=== PATIENT | male | born 1990 | race Caucasian/White ===

== ENCOUNTER 2017-08-22 20:39 | Inpatient (IN) | payer OTHER ==
[~2017-08-22] VITALS: Ht 195.6 cm; Wt 70.1 kg
[2017-08-22 20:46] VITALS: BP 157/92
[2017-08-22] MEDS ORDERED: IBUPROFEN 800800 M1 PO (20:49)
[2017-08-22 21:35] LABS: HEMATOCRIT 41.9 % (42.0-52.0); HEMOGLOBIN 14.6 gm/dL (14.0-18.0); MCH 30.6 pg (26.0-34.0); MCHC 34.8 g/dL (28.0-37.0); MCV 88.1 fL (80.0-100.0); MPV 8.2 fl. (7.2-11.1); NUCLEATED RBCS 0 /100WBC; PLATELET COUNT* 128 thou/uL (150-400); RBC 4.76 mil/uL (4.50-6.00); RDW-CV 13.1 % (10.5-14.5); WBC 13.2 thou/uL (4.0-11.0)
[2017-08-22 21:41] LABS: CALCIUM 8.6 mg/dL (8.5-10.1); CREATININE 0.9 mg/dL (0.6-1.3); POTASSIUM 3.5 mmol/L (3.5-5.1)
[2017-08-22 21:46] LABS: ALBUMIN 4.1 g/dL (3.4-5.0); TOTAL BILIRUBIN 1.2 mg/dL (<0.1-1.0); TOTAL PROTEIN 7.6 g/dL (6.4-8.2)
[2017-08-22 22:01] LABS: ABSOLUTE LYMPHOCYTES 1.1 thou/uL (0.8-5.3); ABSOLUTE MONOCYTES 0.4 thou/uL (0.0-1.2); ABSOLUTE NEUTROPHILS 11.7 thou/uL (1.6-8.1)
[2017-08-22 22:04] LABS: PLATELET ESTIMATE ADEQUATE
[2017-08-22 22:18] VITALS: BP 127/62
[2017-08-22 23:00] VITALS: BP 145/78
[2017-08-23 04:00] VITALS: BP 104/44
[2017-08-23 04:02] LABS: HEMATOCRIT 39.4 % (42.0-52.0); MCHC 35.5 g/dL (28.0-37.0); MCV 87.4 fL (80.0-100.0); MPV 8.6 fl. (7.2-11.1); RBC 4.51 mil/uL (4.50-6.00); RDW-CV 12.7 % (10.5-14.5); WBC 12.7 thou/uL (4.0-11.0)
[2017-08-23 04:20] LABS: CREATININE 0.9 mg/dL (0.6-1.3); POTASSIUM 3.9 mmol/L (3.5-5.1)
[2017-08-23 07:40] VITALS: BP 121/67
[2017-08-23 08:19] LABS: AMP/METHAMP Negative (Negative); BARBITURATES Negative (Negative); BENZODIAZEPINES Negative (Negative); COCAINE Negative (Negative); METHADONE Negative (Negative); OPIATES POSITIVE (Negative); PCP Negative (Negative); THC Negative (Negative)
[2017-08-23 16:14] VITALS: BP 116/56
[2017-08-23 20:00] VITALS: BP 126/59
[2017-08-23 23:32] VITALS: BP 128/71
[2017-08-24 08:00] VITALS: BP 116/68
--- NOTE | 2017-08-24 09:28 | CON ---
[address] [address] CONSULTATION Name: TEAGAN GUZMAN Room: [address] [place] .R.#: [id number] Admission: 08/22/17 Attend Phys: Mike Alonzo MD Discharge: Date of : 89 Report #: [id number] THIS REPORT FOR: //name// CC: Mike Alonzo [facility] physician/PCP DATE OF SERVICE: 08/23/2017 INFECTIOUS DISEASE CONSULTATION ATTENDING PHYSICIAN: Mike Alonzo MD REASON FOR EVALUATION: Skin and soft tissue right hand dorsal aspect, component of cellulitis and probable subcutaneous abscess. HISTORY OF PRESENT ILLNESS: Chart reviewed, patient examined. This is a 27-year-old without significant medical history who sustained an abrasion type injury to his hand dorsal aspect involving the middle digits as well. He had a progressive inflammatory eruption that was erythrodermic in character then moved proximally now involving a good portion of his forearm, has significant pain and decreased range of motion. He underwent evaluation including a white count, which was borderline elevated at 13.2. Blood cultures are sterile thus far. MRI shows diffuse dorsal subcutaneous fat edema and swelling within the distal forearm, hand, proximal digits consistent with manifestations cellulitis, tubular rim enhancing fluid collections in the dorsal subcutaneous fat involving the distal third and fourth metacarpals and perhaps involved the third extensor tendon and distal third metacarpal, has been empirically started on clindamycin. ALLERGIES: None known. MEDICINES: Include enoxaparin, clindamycin and fentanyl. PAST MEDICAL HISTORY: Otherwise, unremarkable. SOCIAL HISTORY: Nonsmoker, no ethanol. FAMILY HISTORY: Noncontributory. REVIEW OF SYSTEMS: Denies any pulmonary or gastrointestinal related complaints. PHYSICAL EXAMINATION: GENERAL: He is pleasant, alert and cooperative. He is in moderate distress secondary to pain. He is elevating, appears to be somewhat thin, although adequately nourished. VITAL SIGNS: Temperature 98.2, pulse 74, respirations 16, blood pressure 116/56. [place] [id number] CONSULTATION Name: TEAGNA GUZMAN Room: [address]#: [id number] Admission: 08/22/17 Attend Phys: Mike Alonzo MD Discharge: Date of : 89 Report #: [id number] SKIN: Warm. No rashes. HEENT: Otherwise, unremarkable. NECK: Supple. LUNGS: Clear breath sounds. HEART: Regular. I do not appreciate a murmur. ABDOMEN: Soft, nontender, nondistended. He has a compression dressing over the hand in the distal forearm. There is clearly erythrodermic rash extending to just below the elbow, is tender, I guess at least moderate to marked inflammation. GENITOURINARY: Deferred. RECTAL: Deferred. LABORATORY DATA: MRI as described above. Blood cultures, CBC: White count now 12.7, H and H 14.0 and 39.4, platelets of 122. Electrolytes: Sodium 140, potassium 3.9, chloride 106, bicarb is 27, anion gap of 7, BUN and creatinine 10 and 0.9, lactic acid 1.2. LFTs unremarkable. Albumin of 4.1, total protein 7.6, total bilirubin of 1.2. ASSESSMENT AND PLAN: Deep dorsal right hand infection with apparent abscesses. Continue empiric antimicrobial therapy. Noted plans for operative debridement in the a.m. We will await those results. <ELECTRONICALLY SIGNED> By: Irving Hwang MD 08/24/17 0928 [id number] Hwang MD /nt
[2017-08-24 15:59] VITALS: BP 127/81
[2017-08-24 20:00] VITALS: BP 117/64
[2017-08-24 23:22] VITALS: BP 123/55
[2017-08-25 04:47] VITALS: BP 109/62
[2017-08-25 07:50] VITALS: BP 117/63
[2017-08-25 15:40] VITALS: BP 115/69
[2017-08-25 20:00] VITALS: BP 133/58
[2017-08-26 04:33] LABS: HEMOGLOBIN 13.6 gm/dL (14.0-18.0); MCH 30.5 pg (26.0-34.0); MCV 89.9 fL (80.0-100.0); MPV 8.4 fl. (7.2-11.1); RBC 4.45 mil/uL (4.50-6.00); RDW-CV 13.1 % (10.5-14.5); WBC 6.2 thou/uL (4.0-11.0)
[2017-08-26 04:53] LABS: ALBUMIN 2.8 g/dL (3.4-5.0); CALCIUM 8.1 mg/dL (8.5-10.1); CREATININE 0.9 mg/dL (0.6-1.3); MAGNESIUM 1.8 mg/dL (1.8-2.4); POTASSIUM 3.6 mmol/L (3.5-5.1); TOTAL BILIRUBIN 0.4 mg/dL (<0.1-1.0); TOTAL PROTEIN 5.8 g/dL (6.4-8.2)
[2017-08-26 08:40] VITALS: BP 111/62
[2017-08-26] MEDS ORDERED: TYLENOL EXTRA500 MG PO (11:43)
[2017-08-26] MEDS ORDERED: HYDROCODONE-AP1 EAC6 PO (11:43)
[2017-08-26] MEDS ORDERED: MIRALAX17 GM PO (11:45)
[2017-08-26 11:51] VITALS: BP 111/62
[2017-08-26 11:55] VITALS: BP 111/62
[2017-08-26 16:51] VITALS: BP 111/62
[2017-08-26] MEDS ORDERED: CEFTRIAXONE2 GM IV (17:18)
[2017-08-26 18:02] VITALS: BP 111/62
--- NOTE | 2017-09-04 06:50 | OP ---
[address] [address] OPERATIVE REPORT Name: TEAGAN GUZMAN Room: [address]#: [id number] Admission: 08/22/17 Attend Phys: Mike Alonzo MD Discharge: 08/26/17 Date of : 89 Report #: [id number] THIS REPORT FOR: //name// CC: Mike Alonzo [facility] physician/PCP DICTATED BY: Giovani Yee DO DATE OF SERVICE: 08/24/2017 DIAGNOSES: 1. Right long metacarpophalangeal joint septic arthritis. 2. Right dorsal hand abscess. PROCEDURE: 1. Right hand long finger metacarpophalangeal joint incision and drainage. 2. Right hand incision and drainage. The incision and drainage that was performed was down to the level of bone, muscle, and tendon. SURGEON: Braxton Vallejo DO. ASSISTANTS: 1. Giovani Yee DO. 2. Douglas Rabago DO ANESTHESIA: General. ESTIMATED BLOOD LOSS: 5 mL. COMPLICATIONS: None. SPECIMENS: Culture swab x 2. CONDITION: The patient stable to PACU. INDICATIONS FOR PROCEDURE: The patient is a 27-year-old male who had an injury approximately 2 days ago where he was trying to start a chainsaw, banged the back of his hand against something that he is unsure of. He had a small opening over the long MCP joint dorsally. He began to have increasing pain, redness, swelling and difficulty with motion. He came to the Emergency Department where he was admitted to the Hospitalist Team and the Infectious Disease Team was consulted. An MRI was obtained, which demonstrated a joint effusion of the long finger metacarpophalangeal joint as well as abscess dorsally in line with the EDC tendon. Given the MRI findings and the increasing warmth and redness as well as pain on examination, it is recommended he undergo irrigation and debridement with I and D of the joint as well. All risks, benefits, [place] [id number] OPERATIVE REPORT Name: TEAGAN GUZMAN Room: [address]#: [id number] Admission: 08/22/17 Attend Phys: Mike Alonzo MD Discharge: 08/26/17 Date of : 89 Report #: [id number] complications and indications reviewed and the patient wished to proceed. DESCRIPTION OF PROCEDURE: The patient was brought to the operative suite, placed supine on a well-padded table. Right upper extremity was positioned on arm table. The right upper extremity was then sterilely prepped and draped in standard fashion. Time-out was taken to ensure correct patient, procedure, operative site, everybody in the room was in agreement. At that time, a 15 blade scalpel was used to make an incision in line with the long finger from the MCP joint to just proximal to the distal wrist crease. This was taken down through the skin only. Bovie electrocautery was used to cauterize any superficial bleeders. Upon entering the dorsum of the hand an abscess was encountered. We took a culture at this point. We then dissected a little deeper where purulence was coming from the MCP joint itself. This was also cultured. Once our dissection was carried out down to the tendon sheath, any purulent hyperemic soft tissue was removed. The hand was then thoroughly irrigated with a total of 6 liters normal saline. Once this was done, dissection was carried out to the level of the bone and the third MCP joint as well as the tendon. Following this 6 liters of irrigation the wound was closed with a 4-0 nylon in simple interrupted fashion. A 10 mL of 0.5% ropivacaine were injected. Xeroform, 4 x 4s, Kerlix and Neeraj bandage were applied. The patient was awoken from anesthesia and brought to the PACU in stable condition. <ELECTRONICALLY SIGNED> By: Anant Powell DO 09/04/17 0650 [id number] Vallejo DO /elliott
== END 2017-08-26 18:05 | disposition home health service (06) | DRG 506 ==
LOC: M.ERS 20:39 → M.TBA-ER 21:46 → M.3W 21:46
PROVIDERS: Emergency Medicine; Family Medicine; ADMIT Internal Medicine
PROC: 0R9U0ZZ Drainage of Right Metacarpophalangeal Joint, Open Approach (ICD-10-PCS; principal; 2017-08-24)
PROC: 05HC33Z Insertion of Infusion Device into Left Basilic Vein, Percutaneous Approach (ICD-10-PCS; 2017-08-26)
DX: M00.9 Pyogenic arthritis, unspecified (principal); L02.511 Cutaneous abscess of right hand; E44.0 Moderate protein-calorie malnutrition; R65.10 Systemic inflammatory response syndrome (SIRS) of non-infectious origin without acute organ dysfunction; L03.011 Cellulitis of right finger; M65.841 Other synovitis and tenosynovitis, right hand; Z23 Encounter for immunization